=== PATIENT | male | born 1980 ===

== ENCOUNTER 2018-02-17 14:06 | Emergency (ER) | payer OTHER ==
[2018-02-17 14:19] VITALS: TEMP 98.4; O2SAT 98
[2018-02-17] MEDS ORDERED: Naproxen 550 mg Tab PO STA (14:25)
[2018-02-17] MEDS ORDERED: Naproxen 550 mg Tab PO ONE (14:29)
[2018-02-17 15:37] LABS: BARBITURATES, UR NEGATIVE (NEGATIVE); BENZODIAZEPINES, UR NEGATIVE (NEGATIVE); OPIATES, UR NEGATIVE (NEGATIVE); PHENCYCLIDINE, UR NEGATIVE (NEGATIVE)
--- NOTE | 2018-02-17 15:46 | C.PDOC ---
History Of Present Illness Pt states that a co-worker gave him a chocolate to eat. Pt then started feeling strange, then co-worker confessed that the chocolate had marijuana inside. Time Seen by Provider: 02/17/18 14:18 Chief Complaint (Nursing): Substance Abuse History Per: Patient Onset/Duration Of Symptoms: Hrs (1), Sudden Onset Current Symptoms Are (Timing): Still Present Suicide/Self Injury Attempted (Context): None Modifying Factor(s): Marijuana Severity: Moderate Associated Symptoms: denies: Suicidal Thoughts, Suicidal Plan Additional History Per: Prior Records Past Medical History Reviewed: Historical Data, Nursing Documentation, Vital Signs Vital Signs: Last Vital Signs Temp 98.4 F 02/17/18 14:16 Pulse 75 02/17/18 14:16 Resp 17 02/17/18 14:16 BP 137/94 H 02/17/18 14:16 Pulse Ox 98 02/17/18 14:16 - Medical History PMH: No Chronic Diseases Family History: States: Unknown Family Hx - Social History Hx Alcohol Use: No Hx Substance Use: No - Immunization History Hx Tetanus Toxoid Vaccination: Yes Hx Influenza Vaccination: Yes Hx Pneumococcal Vaccination: No Review Of Systems Except As Marked, All Systems Reviewed And Found Negative. Constitutional: Positive for: Malaise. Negative for: Fever ENT: Positive for: Throat Pain Cardiovascular: Positive for: Light Headedness. Negative for: Chest Pain Respiratory: Negative for: Shortness of Breath Gastrointestinal: Positive for: Nausea. Negative for: Abdominal Pain Musculoskeletal: Negative for: Neck Pain Skin: Negative for: Rash Neurological: Negative for: Weakness, Numbness Physical Exam - Physical Exam Appears: Non-toxic, No Acute Distress Skin: Normal Color, Warm, Dry, No Rash Head: Atraumatic, Normacephalic Eye(s): bilateral: PERRL, EOMI Throat: Normal Neck: Normal ROM, Supple Lymphatic: No Adenopathy Cardiovascular: Rhythm Regular Respiratory: Normal Breath Sounds, No Accessory Muscle Use Gastrointestinal/Abdominal: Soft, No Tenderness Extremity: Normal ROM Neurological/Psych: Oriented x3, Normal Speech, Normal Motor, Normal Sensation Gait: Steady ED Course And Treatment O2 Sat by Pulse Oximetry: 98 Pulse Ox Interpretation: Normal Reassessment Condition: Improved Disposition Counseled Patient/Family Regarding: Studies Performed, Diagnosis, Need For Followup - Disposition Referrals: [facility] [Outside] Disposition: HOME/ ROUTINE Disposition Time: 15:46 Condition: STABLE Additional Instructions: Do not drive or operate machinery. Follow up in the clinic. Return to the ER if you develop worsening of symptoms or if you have any other concerns. Instructions: Marijuana Use and Addiction (DC) Print Language: YI - Clinical Impression Clinical Impression: Marijuana intoxication
[2018-02-17 15:53] VITALS: BP 132/81; PULSE 84; RESP 16
== END 2018-02-17 15:53 | disposition home or self-care (01) ==
LOC: C.ER 14:06
DX: F12.929 Cannabis use, unspecified with intoxication, unspecified (principal)